=== PATIENT | male | born 1965 | race American Indian/Alaskan Native ===

== ENCOUNTER 2021-07-26 08:36 | Inpatient (IN) | payer SELFPAY ==
[2021-07-26] MEDS ORDERED: ALBUTEROL 2.5 MG/3 ML NEBU IH ONE (08:38)
[2021-07-26] MEDS ORDERED: IPRATROPIUM 0.02% NEBU 2.5 ML IH ONE (08:38)
[2021-07-26] MEDS ORDERED: ALBUTEROL 2.5 MG/3 ML NEBU IH SCH (09:00)
[2021-07-26] MEDS ORDERED: FUROSEMIDE 40 MG/4 ML INJ IV SCH (09:00)
[2021-07-26] MEDS ORDERED: IPRATROPIUM 0.02% NEBU 2.5 ML IH SCH (09:00)
[2021-07-26 09:12] LABS: Basophils # (Auto) 0.1 K/mm3 (0.0-0.1); Basophils % (Auto) 1.1 % (0.0-1.8); Eosinophils # (Auto) 0.4 K/mm3 (0.0-0.4); Eosinophils % (Auto) 5.5 % (0.0-4.3); Hematocrit 29.5 % (35.5-45.6); Hemoglobin 9.8 gm/dl (11.8-15.2); Lymphocytes # (Auto) 3.7 K/mm3 (1.2-5.4); Lymphocytes % (Auto) 48.9 % (13.4-35.0); Mean Corpuscular HGB Conc 33 % (32-34); Mean Corpuscular Volume 94 fl (84-94); Monocytes # (Auto) 0.5 K/mm3 (0.0-0.8); Platelet Count 285 K/mm3 (140-440); Red Blood Count 3.14 M/mm3 (3.65-5.03); Red Cell Distribution Width 14.7 % (13.2-15.2)
[2021-07-26 09:21] LABS: INR 1.23 (0.87-1.13)
[2021-07-26 09:29] LABS: ABG HCO3 23.7 mmol/L (20.0-26.0); ABG Methemoglobin 0.4 % (0.0-1.5); ABG Oxygen Saturation 94.5 % (95.0-99.0); ABG PCO2 61.3 mm Hg; ABG PH 7.205 pH Units (7.350-7.450); ABG PO2 83.5 mm Hg (80.0-90.0)
[2021-07-26 09:32] LABS: Creatine Kinase MB 5.7 ng/mL (0.0-4.0)
[2021-07-26 09:35] LABS: Alanine Aminotransferase 28 units/L (7-56); Albumin 2.7 g/dL (3.9-5); BUN/Creatinine Ratio 13; Blood Urea Nitrogen 10 mg/dL (9-20); Calcium 6.7 mg/dL (8.4-10.2); Hemolysis Index 128
[2021-07-26 10:12] LABS: Amphetamine Screen,Urine PRESUMPTIVE NEGATIVE; Benzodiazepines Screen,Urine PRESUMPTIVE NEGATIVE; Cannabinoid Screen,Urine PRESUMPTIVE POSITIVE; Cocaine Screen,Urine PRESUMPTIVE POSITIVE; Methadone Screen,Urine PRESUMPTIVE NEGATIVE; Opiate Screen,Urine PRESUMPTIVE NEGATIVE
[2021-07-26 10:23] LABS: Bilirubin,Urine NEG (Negative); Blood,Urine SM (Negative); Color,Urine Colorless (Yellow); Urobilinogen,Urine < 2.0 mg/dL (<2.0)
--- NOTE | 2021-07-26 10:41 | XRay Report ---
CHEST 1 VIEW INDICATION: Dyspnea. COMPARISON: None FINDINGS: SUPPORT DEVICES: None. HEART: Within normal limits. LUNGS/PLEURA: Moderate patchy multifocal airspace disease throughout the lungs with no pleural effusi on. ADDITIONAL FINDINGS: None. IMPRESSION: 1. Lung findings as above. Signer Name: Grant Norman MD Signed: 07/26/2021 10:36 AM Workstation Name: [id number]
[2021-07-26] MEDS ORDERED: cefTRIAXone/NS 1 GM/50 ML 1 GM/50 ML BAG IV ONE (11:45)
--- NOTE | 2021-07-26 11:50 | Emergency Department Report ---
ED Shortness of Breath HPI - General Chief Complaint: Dyspnea/Respdistress Stated Complaint: shortness of breath Time Seen by Provider: 07/26/21 08:37 Source: EMS Mode of arrival: Stretcher Limitations: No Limitations - History of Present Illness Initial Comments: Pt found on side of the road in severe respiratory distress. pt is 56 years old with no known medical problems , he was found by EMS at the side of road ion distress, admit to drug use, no fever, o2 sat is low MD Complaint: shortness of breath -: Gradual, days(s) Known History Of: other Associated Symptoms: chest pain, cough - Related Data Home Oxygen Therapy: No Home Medications Medication Instructions Recorded Confirmed Last Taken No Known Home Medications [No 07/26/21 07/26/21 Unknown Reported Home Medications] Allergies Allergy/AdvReac Type Severity Reaction Status Date / Time No Known Allergies Allergy Unverified 07/26/21 08:50 ED Review of Systems ROS: Stated complaint: shortness of breath Other details as noted in HPI Comment: Unobtainable due to pts medical conditions ED Past Medical Hx - Past Medical History Previous Medical History?: No Hx Hypertension: No - Medications Home Medications: Home Medications Medication Instructions Recorded Confirmed Last Taken Type No Known Home Medications [No 07/26/21 07/26/21 Unknown History Reported Home Medications] ED Physical Exam - General Limitations: No Limitations General appearance: alert, in distress - Head Head exam: Present: atraumatic, normocephalic - Eye Eye exam: Present: normal appearance - ENT ENT exam: Present: mucous membranes moist - Neck Neck exam: Present: normal inspection - Respiratory Respiratory exam: Present: wheezes, rales, decreased breath sounds. Absent: respiratory distress - Cardiovascular Cardiovascular Exam: Present: normal rhythm, tachycardia. Absent: systolic murmur, diastolic murmur, rubs, gallop - GI/Abdominal GI/Abdominal exam: Present: soft, normal bowel sounds - Rectal Rectal exam: Present: deferred - Extremities Exam Extremities exam: Present: normal inspection - Back Exam Back exam: Present: normal inspection - Neurological Exam Neurological exam: Present: alert, oriented X3 - Psychiatric Psychiatric exam: Present: normal affect, normal mood - Skin Skin exam: Present: warm, dry, intact, normal color. Absent: rash ED Course Vital Signs 04/05/22 04/05/22 04/05/22 08:32 08:35 08:40 Temperature 95.9 F L Pulse Rate 100 H 113 H 114 H Pulse Rate [ Bilateral Bases ] Respiratory 32 H 33 H 28 H Rate Respiratory Rate [Bilateral Bases] Blood Pressure 203/130 Blood Pressure 194/131 [Right] O2 Sat by Pulse 82 L 100 100 Oximetry 07/26/21 07/26/21 07/26/21 08:46 09:00 09:14 Temperature Pulse Rate 111 H 123 H Pulse Rate [ 108 H Bilateral Bases ] Respiratory 30 H 30 H Rate Respiratory 33 H Rate [Bilateral Bases] Blood Pressure 194/131 Blood Pressure [Right] O2 Sat by Pulse 100 100 Oximetry 07/26/21 07/26/21 07/26/21 09:16 09:30 09:46 Temperature Pulse Rate 108 H 104 H 98 H Pulse Rate [ Bilateral Bases ] Respiratory 33 H 27 H 23 Rate Respiratory Rate [Bilateral Bases] Blood Pressure 194/131 177/115 177/115 Blood Pressure [Right] O2 Sat by Pulse 100 100 100 Oximetry 07/26/21 07/26/21 07/26/21 10:00 10:16 10:30 Temperature Pulse Rate 95 H 91 H 92 H Pulse Rate [ Bilateral Bases ] Respiratory 21 17 21 Rate Respiratory Rate [Bilateral Bases] Blood Pressure 160/107 160/107 147/100 Blood Pressure [Right] O2 Sat by Pulse 100 100 100 Oximetry 07/26/21 07/26/21 07/26/21 10:40 10:46 11:00 Temperature 96.0 F L Pulse Rate 85 86 Pulse Rate [ Bilateral Bases ] Respiratory 19 21 Rate Respiratory Rate [Bilateral Bases] Blood Pressure 147/100 134/90 Blood Pressure [Right] O2 Sat by Pulse 100 100 Oximetry 07/26/21 07/26/21 11:16 11:30 Temperature Pulse Rate 81 85 Pulse Rate [ Bilateral Bases ] Respiratory 19 20 Rate Respiratory Rate [Bilateral Bases] Blood Pressure 134/90 129/85 Blood Pressure [Right] O2 Sat by Pulse 100 100 Oximetry ED Medical Decision Making - Lab Data Result diagrams: 07/26/21 08:45 07/26/21 08:45 - EKG Data -: EKG Interpreted by [facility] EKG shows normal: sinus rhythm Rate: tachycardia - EKG Data Interpretation: [facility] Critical care attestation.: If time is entered above; I have spent that time in minutes in the direct care of this critically ill patient, excluding procedure time. ED Disposition Clinical Impression: SOB (shortness of breath), CHF (congestive heart failure), Pneumonia, Respiratory failure, Substance abuse Disposition: 09 ADMITTED INPATIENT Is pt being admited?: Yes Does the pt Need Aspirin: No Condition: Fair Instructions: Bacterial Pneumonia (ED) Referrals: TARUN VALDEZ MD [Primary Care Provider] - 3-5 Days
[2021-07-26] MEDS ORDERED: oxyCODONE /ACETAMINOPHEN 5-325MG TAB PO PRN (13:24)
[2021-07-26] MEDS ORDERED: ONDANSETRON 4 MG/2 ML INJ IV PRN (13:24)
[2021-07-26] MEDS ORDERED: ACETAMINOPHEN 325 MG TAB PO PRN (13:24)
--- NOTE | 2021-07-26 13:24 | History and Physical Report ---
History of Present Illness Date of examination: 07/26/21 Date of admission: July 22, 2021 Chief complaint: Increasing shortness of breath and altered sensorium since morning History of present illness: Patient was found started on broad insulin with respiratory distress. Patient was found by EMS and was brought to the emergency room. Patient was hypoxic at the time of arrival in the emergency room. Patient had bilateral crackles on examination. Work-up in the emergency room revealed pulmonary vascular congestion because of which patient is being admitted. Also his blood pressure was high. No chest pain. Orthopnea present. Dyspnea on exertion present. Patient has class III to class IV NYHA symptoms. - Past Medical History -- No -past surgical history N/a -social history N/a -family history N/a - Medications Home Medications: Home Medications Medication Instructions Recorded Confirmed Last Taken Type No Known Home Medications [No 07/26/21 07/26/21 Unknown History Reported Home Medications] Review of Systems ROS: Stated complaint: shortness of breath Other details as noted in HPI Comment: Unobtainable due to pts medical conditions Medications and Allergies Allergies Allergy/AdvReac Type Severity Reaction Status Date / Time No Known Allergies Allergy Unverified 07/26/21 08:50 Home Medications Medication Instructions Recorded Confirmed Last Taken Type No Known Home Medications [No 07/26/21 07/26/21 Unknown History Reported Home Medications] Active Meds: Active Medications Albuterol (Albuterol 2.5 Mg/3 Ml Nebu) 2.5 mg IH ONCE@0900 [facility] Stop: 07/26/21 14:00 Last Admin: 07/26/21 11:37 Dose: Not Given Ipratropium [place] (Ipratropium 0.02% Nebu 2.5 Ml) 0.5 mg IH ONCE@0900 [facility] Stop: 07/26/21 14:00 Last Admin: 07/26/21 11:37 Dose: Not Given Exam - Constitutional Vitals: Temp Pulse Resp BP Pulse Ox 96.0 F L 84 18 128/94 100 07/26/21 10:40 07/26/21 13:00 07/26/21 13:00 07/26/21 13:00 07/26/21 13:00 General appearance: Present: no acute distress, well-nourished - EENT Eyes: Present: PERRL ENT: hearing intact, clear oral mucosa - Neck Neck: Present: supple, normal ROM - Respiratory Respiratory effort: normal Respiratory: bilateral: CTA, rales - Cardiovascular Heart rate: 78 Rhythm: regular Heart Sounds: Present: S1 & S2. Absent: rub, click - Extremities Extremities: pulses symmetrical, No edema Peripheral Pulses: within normal limits - Abdominal General gastrointestinal: Present: soft, non-tender, non-distended, normal bowel sounds Male genitourinary: Present: normal - Rectal Rectal Exam: deferred - Integumentary Integumentary: Present: clear, warm, dry - Musculoskeletal Musculoskeletal: gait normal, strength equal bilaterally - Psychiatric Psychiatric: appropriate mood/affect, intact judgment & insight - Neurologic Neurologic: CNII-XII intact, moves all extremities - Allied Health Allied health notes reviewed: nursing, case management HEART Score - HEART Score Troponin: Troponin T < 0.010 ng/mL (0.00-0.029) 07/26/21 08:45 Results - Labs CBC & Chem 7: 07/27/21 05:54 07/27/21 05:54 Labs: Laboratory Last Values WBC 7.5 K/mm3 (4.5-11.0) 07/26/21 08:45 RBC 3.14 M/mm3 (3.65-5.03) L 07/26/21 08:45 Hgb 9.8 gm/dl (11.8-15.2) L 07/26/21 08:45 Hct 29.5 % (35.5-45.6) L 07/26/21 08:45 MCV 94 fl (84-94) 07/26/21 08:45 MCH 31 pg (28-32) 07/26/21 08:45 MCHC 33 % (32-34) 07/26/21 08:45 RDW 14.7 % (13.2-15.2) 07/26/21 08:45 Plt Count 285 K/mm3 (140-440) 07/26/21 08:45 Lymph % (Auto) 48.9 % (13.4-35.0) H 07/26/21 08:45 [place] % (Auto) 6.0 % (0.0-7.3) 07/26/21 08:45 Eos % (Auto) 5.5 % (0.0-4.3) H 07/26/21 08:45 Baso % (Auto) 1.1 % (0.0-1.8) 07/26/21 08:45 Lymph # (Auto) 3.7 K/mm3 (1.2-5.4) 07/26/21 08:45 [place] # (Auto) 0.5 K/mm3 (0.0-0.8) 07/26/21 08:45 Eos # (Auto) 0.4 K/mm3 (0.0-0.4) 07/26/21 08:45 Baso # (Auto) 0.1 K/mm3 (0.0-0.1) 07/26/21 08:45 Seg Neutrophils % 38.5 % (40.0-70.0) L 07/26/21 08:45 Seg Neutrophils # 2.9 K/mm3 (1.8-7.7) 07/26/21 08:45 PT 16.9 Sec. (12.2-14.9) H 07/26/21 08:45 INR 1.23 (0.87-1.13) H 07/26/21 08:45 ABG pH 7.205 pH Units (7.350-7.450) L 07/26/21 09:10 ABG pCO2 61.3 mm Hg 07/26/21 09:10 ABG pO2 83.5 mm Hg (80.0-90.0) 07/26/21 09:10 ABG HCO3 23.7 mmol/L (20.0-26.0) 07/26/21 09:10 ABG O2 Saturation 94.5 % (95.0-99.0) L 07/26/21 09:10 ABG O2 Content 15.6 (0.0-44) 07/26/21 09:10 ABG Base Excess -5.0 mmol/L (-2.0-3.0) L 07/26/21 09:10 ABG Hemoglobin 12.3 gm/dl (14.0-18.0) L 07/26/21 09:10 ABG Carboxyhemoglobin 4.7 % (0.0-5.0) 07/26/21 09:10 ABG Methemoglobin 0.4 % (0.0-1.5) 07/26/21 09:10 Oxyhemoglobin 89.7 % (95.0-99.0) L 07/26/21 09:10 FiO2 60 % 07/26/21 09:10 Sodium 144 mmol/L (137-145) 07/26/21 08:45 Potassium 3.6 mmol/L (3.6-5.0) 07/26/21 08:45 Chloride 113.2 mmol/L (98-107) H 07/26/21 08:45 Carbon Dioxide 18 mmol/L (22-30) L 07/26/21 08:45 Anion Gap 16 mmol/L 07/26/21 08:45 BUN 10 mg/dL (9-20) 07/26/21 08:45 Creatinine 0.8 mg/dL (0.8-1.3) 07/26/21 08:45 Estimated GFR > 60 ml/min 07/26/21 08:45 BUN/Creatinine Ratio 13 % 07/26/21 08:45 Glucose 170 mg/dL (75-100) H 07/26/21 08:45 POC Glucose 161 mg/dL (70-105) H 07/26/21 09:04 Calcium 6.7 mg/dL (8.4-10.2) L 07/26/21 08:45 Magnesium 1.70 mg/dL (1.7-2.3) 07/26/21 08:45 Total Bilirubin 0.40 mg/dL (0.1-1.2) 07/26/21 08:45 AST 38 units/L (5-40) 07/26/21 08:45 ALT 28 units/L (7-56) 07/26/21 08:45 Alkaline Phosphatase 75 units/L (35-129) 07/26/21 08:45 Total Creatine Kinase 256 units/L (55-170) H 07/26/21 08:45 CK-MB (CK-2) 5.7 ng/mL (0.0-4.0) H 07/26/21 08:45 CK-MB (CK-2) Rel Index 2.2 (0-4) 07/26/21 08:45 Troponin T < 0.010 ng/mL (0.00-0.029) 07/26/21 08:45 NT-Pro-B Natriuret Pep 1129 pg/mL (0-900) H 07/26/21 08:45 Total Protein 5.7 g/dL (6.3-8.2) L 07/26/21 08:45 Albumin 2.7 g/dL (3.9-5) L 07/26/21 08:45 Albumin/Globulin Ratio 0.9 % 07/26/21 08:45 Lipase 22 units/L (13-60) 07/26/21 08:45 Urine Color Colorless (Yellow) 07/26/21 09:51 Urine Turbidity Clear (Clear) 07/26/21 09:51 Urine pH 7.0 (5.0-7.0) 07/26/21 09:51 Ur Specific [place] 1.006 (1.003-1.030) 07/26/21 09:51 Urine Protein 100 mg/dl mg/dL (Negative) 07/26/21 09:51 Urine Glucose (UA) 50 mg/dL (Negative) 07/26/21 09:51 Urine Ketones Neg mg/dL (Negative) 07/26/21 09:51 Urine Blood Sm (Negative) 07/26/21 09:51 Urine Nitrite Neg (Negative) 07/26/21 09:51 Urine Bilirubin Neg (Negative) 07/26/21 09:51 Urine Urobilinogen < 2.0 mg/dL (<2.0) 07/26/21 09:51 Ur Leukocyte Esterase Neg (Negative) 07/26/21 09:51 Urine WBC (Auto) 3.0 /HPF (0.0-6.0) 07/26/21 09:51 Urine RBC (Auto) 2.0 /HPF (0.0-6.0) 07/26/21 09:51 U Epithel Cells (Auto) < 1.0 /HPF (0-13.0) 07/26/21 09:51 Urine Opiates Screen Presumptive negative 07/26/21 09:51 Urine Methadone Screen Presumptive negative 07/26/21 09:51 Ur Barbiturates Screen Presumptive negative 07/26/21 09:51 Ur Phencyclidine Scrn Presumptive negative 07/26/21 09:51 Ur Amphetamines Screen Presumptive negative 07/26/21 09:51 U Benzodiazepines Scrn Presumptive negative 07/26/21 09:51 Urine Cocaine Screen Presumptive positive 07/26/21 09:51 U Marijuana (THC) Screen Presumptive positive 07/26/21 09:51 Drugs of Abuse Note Disclamer 07/26/21 09:51 - Imaging and Cardiology Imaging and Cardiology: Chest x-ray Moderate patchy multifocal airspace disease throughout the lungs with no pleural effusion Assessment and Plan Advance Directives: Yes - Patient Problems (1) Acute respiratory failure with hypoxia Current Visit: Yes Status: Acute Plan to address problem: Secondary to CHF and pulmonary edema (2) Acute exacerbation of CHF (congestive heart failure) Current Visit: Yes Status: Acute Qualifiers: Heart failure type: combined systolic and diastolic Qualified Code(s): I50.43 - 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 Plan to address problem: IV Lasix for now Aldactone added Echocardiogram for ejection fraction and valve function and wall abnormalities Cardiology consult requested (3) Hypertension Current Visit: Yes Status: Chronic Qualifiers: Hypertension type: primary hypertension Qualified Code(s): I10 - Essential (primary) hypertension Plan to address problem: Continue blood pressure medicines and adjust medications (4) DVT prophylaxis Current Visit: Yes Status: Acute Plan to address problem: On anticoagulation GI prophylaxis (5) Advance care planning Current Visit: Yes Status: Acute Plan to address problem: Disease education conducted care, care plan discussed, diagnosis discussed, prognosis discussed. Patient is full code. Patient acknowledges understanding and agreement with care plan. +30 minutes. (6) Person under investigation for COVID-19 Current Visit: Yes Status: Acute Plan to address problem: Coronavirus PCR test ordered for the morning
[2021-07-26] MEDS: POTASSIUM CHLORIDE ER 20 MEQ TAB PO SCH (14:11)
[2021-07-26] MEDS: FUROSEMIDE 40 MG/4 ML INJ IV SCH (17:47)
[2021-07-26] MEDS: FAMOTIDINE 20 MG TAB PO SCH (22:03)
[2021-07-27] MEDS: POTASSIUM CHLORIDE ER 20 MEQ TAB PO SCH (05:15)
[2021-07-27] MEDS: FUROSEMIDE 40 MG/4 ML INJ IV SCH (05:15)
[2021-07-27 06:21] LABS: Basophils % (Auto) 0.6 % (0.0-1.8); Eosinophils # (Auto) 0.2 K/mm3 (0.0-0.4); Eosinophils % (Auto) 2.5 % (0.0-4.3); Hematocrit 42.9 % (35.5-45.6); Hemoglobin 13.7 gm/dl (11.8-15.2); Lymphocytes # (Auto) 1.8 K/mm3 (1.2-5.4); Mean Corpuscular HGB Conc 32 % (32-34); Mean Corpuscular Volume 92 fl (84-94); Monocytes # (Auto) 0.5 K/mm3 (0.0-0.8); Monocytes % (Auto) 6.6 % (0.0-7.3); Platelet Count 335 K/mm3 (140-440); Red Blood Count 4.64 M/mm3 (3.65-5.03); Red Cell Distribution Width 14.6 % (13.2-15.2)
[2021-07-27 06:45] LABS: Alanine Aminotransferase 29 units/L (7-56); Albumin 3.7 g/dL (3.9-5); BUN/Creatinine Ratio 19; Blood Urea Nitrogen 21 mg/dL (9-20); Calcium 9.8 mg/dL (8.4-10.2); Hemolysis Index 10
--- NOTE | 2021-07-27 09:56 | Progress Note ---
Assessment and Plan Assessment and plan: #Acute respiratory failure with hypoxia -Hypoxic on admission, etiology suspect decompensation congestive heart failure ABG 7.2/61.3/83.5/23.7 on 60% FiO2 On BiPAP, will transition to nasal cannula #Acute exacerbation of congestive heart failure -Patient states that he had a recent admission at [place] for congestive heart failure, not currently on any medications -Troponin negative -BNP 1129 -Diuresis with Lasix 40 mg IV twice daily -Strict I/O. -Echo pending -Cardiology consulted on admission GDMT with lisinopril, Lasix. Will hold beta-jacob due to active cocaine abuse #Hypertensive urgency 194/131 Currently 130/82. Antihypertensive medications: Lisinopril, Lasix #Acute metabolic encephalopathy #Normocytic anemia #Active cocaine use -UDS positive + Behavioral health counseling administered educated patient on the harms of recreational drug abuse and the benefits of cessation. Community resources given for quitting. +15 minutes #Active THC use -UDS positive # Nicotine Abuse. - Cigarettes smoker - behavioral health counseling administered which included education on benefits of smoking cessation as well as options for quitting. +15 min. #Advance care planning Disease education conducted, care plan discussed, diagnoses discussed, prognosis discussed, patient is full code, patient acknowledges understanding and agree with care plan, +30 minutes. The high probability of a clinically significant, sudden or life threatening deterioration of the [multi] system(s) required my full and direct attention, intervention and personal management. The aggregate critical care time was [60] minutes. This time is in addition to time spent performing reported procedures but includes the following: [x] Data Review and interpretation [x] Patient assessment and monitoring of vital signs [x] Documentation [x] Medication orders and management Hospitalist Physical - Constitutional Vitals: Temp Pulse Resp BP Pulse Ox 98.0 F 81 18 130/82 100 07/27/21 04:08 07/27/21 04:44 07/27/21 04:08 07/27/21 04:08 07/27/21 04:08 General appearance: Present: no acute distress, well-nourished HEART Score - HEART Score Troponin: Troponin T < 0.010 ng/mL (0.00-0.029) 07/26/21 08:45 Results - Labs CBC & Chem 7: 07/27/21 05:54 07/27/21 05:54 Labs: Laboratory Last Values WBC 7.2 K/mm3 (4.5-11.0) 07/27/21 05:54 RBC 4.64 M/mm3 (3.65-5.03) 07/27/21 05:54 Hgb 13.7 gm/dl (11.8-15.2) D 07/27/21 05:54 Hct 42.9 % (35.5-45.6) D 07/27/21 05:54 MCV 92 fl (84-94) 07/27/21 05:54 MCH 29 pg (28-32) 07/27/21 05:54 MCHC 32 % (32-34) 07/27/21 05:54 RDW 14.6 % (13.2-15.2) 07/27/21 05:54 Plt Count 335 K/mm3 (140-440) 07/27/21 05:54 Lymph % (Auto) 25.0 % (13.4-35.0) 07/27/21 05:54 [place] % (Auto) 6.6 % (0.0-7.3) 07/27/21 05:54 Eos % (Auto) 2.5 % (0.0-4.3) 07/27/21 05:54 Baso % (Auto) 0.6 % (0.0-1.8) 07/27/21 05:54 Lymph # (Auto) 1.8 K/mm3 (1.2-5.4) 07/27/21 05:54 [place] # (Auto) 0.5 K/mm3 (0.0-0.8) 07/27/21 05:54 Eos # (Auto) 0.2 K/mm3 (0.0-0.4) 07/27/21 05:54 Baso # (Auto) 0.0 K/mm3 (0.0-0.1) 07/27/21 05:54 Seg Neutrophils % 65.3 % (40.0-70.0) 07/27/21 05:54 Seg Neutrophils # 4.7 K/mm3 (1.8-7.7) 07/27/21 05:54 PT 16.9 Sec. (12.2-14.9) H 07/26/21 08:45 INR 1.23 (0.87-1.13) H 07/26/21 08:45 ABG pH 7.205 pH Units (7.350-7.450) L 07/26/21 09:10 ABG pCO2 61.3 mm Hg 07/26/21 09:10 ABG pO2 83.5 mm Hg (80.0-90.0) 07/26/21 09:10 ABG HCO3 23.7 mmol/L (20.0-26.0) 07/26/21 09:10 ABG O2 Saturation 94.5 % (95.0-99.0) L 07/26/21 09:10 ABG O2 Content 15.6 (0.0-44) 07/26/21 09:10 ABG Base Excess -5.0 mmol/L (-2.0-3.0) L 07/26/21 09:10 ABG Hemoglobin 12.3 gm/dl (14.0-18.0) L 07/26/21 09:10 ABG Carboxyhemoglobin 4.7 % (0.0-5.0) 07/26/21 09:10 ABG Methemoglobin 0.4 % (0.0-1.5) 07/26/21 09:10 Oxyhemoglobin 89.7 % (95.0-99.0) L 07/26/21 09:10 FiO2 60 % 07/26/21 09:10 Sodium 140 mmol/L (137-145) 07/27/21 05:54 Potassium 4.1 mmol/L (3.6-5.0) 07/27/21 05:54 Chloride 102.1 mmol/L (98-107) 07/27/21 05:54 Carbon Dioxide 25 mmol/L (22-30) D 07/27/21 05:54 Anion Gap 17 mmol/L 07/27/21 05:54 BUN 21 mg/dL (9-20) H 07/27/21 05:54 Creatinine 1.1 mg/dL (0.8-1.3) 07/27/21 05:54 Estimated GFR > 60 ml/min 07/27/21 05:54 BUN/Creatinine Ratio 19 % 07/27/21 05:54 Glucose 94 mg/dL (75-100) 07/27/21 05:54 POC Glucose 161 mg/dL (70-105) H 07/26/21 09:04 Calcium 9.8 mg/dL (8.4-10.2) D 07/27/21 05:54 Magnesium 1.70 mg/dL (1.7-2.3) 07/26/21 08:45 Total Bilirubin 0.60 mg/dL (0.1-1.2) 07/27/21 05:54 AST 27 units/L (5-40) 07/27/21 05:54 ALT 29 units/L (7-56) 07/27/21 05:54 Alkaline Phosphatase 92 units/L (35-129) 07/27/21 05:54 Total Creatine Kinase 256 units/L (55-170) H 07/26/21 08:45 CK-MB (CK-2) 5.7 ng/mL (0.0-4.0) H 07/26/21 08:45 CK-MB (CK-2) Rel Index 2.2 (0-4) 07/26/21 08:45 Troponin T < 0.010 ng/mL (0.00-0.029) 07/26/21 08:45 NT-Pro-B Natriuret Pep 1129 pg/mL (0-900) H 07/26/21 08:45 Total Protein 7.3 g/dL (6.3-8.2) D 07/27/21 05:54 Albumin 3.7 g/dL (3.9-5) L 07/27/21 05:54 Albumin/Globulin Ratio 1.0 % 07/27/21 05:54 Lipase 22 units/L (13-60) 07/26/21 08:45 Urine Color Colorless (Yellow) 07/26/21 09:51 Urine Turbidity Clear (Clear) 07/26/21 09:51 Urine pH 7.0 (5.0-7.0) 07/26/21 09:51 Ur Specific [place] 1.006 (1.003-1.030) 07/26/21 09:51 Urine Protein 100 mg/dl mg/dL (Negative) 07/26/21 09:51 Urine Glucose (UA) 50 mg/dL (Negative) 07/26/21 09:51 Urine Ketones Neg mg/dL (Negative) 07/26/21 09:51 Urine Blood Sm (Negative) 07/26/21 09:51 Urine Nitrite Neg (Negative) 07/26/21 09:51 Urine Bilirubin Neg (Negative) 07/26/21 09:51 Urine Urobilinogen < 2.0 mg/dL (<2.0) 07/26/21 09:51 Ur Leukocyte Esterase Neg (Negative) 07/26/21 09:51 Urine WBC (Auto) 3.0 /HPF (0.0-6.0) 07/26/21 09:51 Urine RBC (Auto) 2.0 /HPF (0.0-6.0) 07/26/21 09:51 U Epithel Cells (Auto) < 1.0 /HPF (0-13.0) 07/26/21 09:51 Urine Opiates Screen Presumptive negative 07/26/21 09:51 Urine Methadone Screen Presumptive negative 07/26/21 09:51 Ur Barbiturates Screen Presumptive negative 07/26/21 09:51 Ur Phencyclidine Scrn Presumptive negative 07/26/21 09:51 Ur Amphetamines Screen Presumptive negative 07/26/21 09:51 U Benzodiazepines Scrn Presumptive negative 07/26/21 09:51 Urine Cocaine Screen Presumptive positive 07/26/21 09:51 U Marijuana (THC) Screen Presumptive positive 07/26/21 09:51 Drugs of Abuse Note Disclamer 07/26/21 09:51 [place]/IV: Voiding Method Urinal Active Medications - Current Medications Current Medications: Generic Name Dose Route Start Last Admin Trade Name Freq PRN Reason Stop Dose Admin Acetaminophen 650 mg 07/26/21 13:24 Acetaminophen 325 Mg Tab PO Q4H PRN Pain MILD(1-3)/Fever >100.5/COLLAZO Famotidine 20 mg 07/26/21 22:00 07/26/21 22:03 Famotidine 20 Mg Tab PO 20 mg BID DANETTE Administration Furosemide 40 mg 07/26/21 18:00 07/27/21 05:15 Furosemide 40 Mg/4 Ml Inj IV 40 mg 0600,1800 DANETTE Administration Nicotine 14 mg 07/27/21 23:21 Nicotine 14 Mg/24 Hr Patch TD QDAY DANETTE Ondansetron HCl 4 mg 07/26/21 13:24 Ondansetron 4 Mg/2 Ml Inj IV Q8H PRN Nausea And Vomiting Oxycodone/Acetaminophen 1 tab 07/26/21 13:24 Oxycodone /Acetaminophen 5-325mg Tab PO Q6H PRN Pain, Moderate (4-6) Potassium Chloride 20 meq 07/26/21 14:00 07/27/21 05:15 Potassium Chloride Er 20 Meq Tab PO 20 meq Q12H DANETTE Administration Sodium Chloride 10 ml 07/26/21 22:00 07/26/21 22:03 Sodium Chloride 0.9% 10 Ml Flush Syringe IV 10 ml BID DANETTE Administration Sodium Chloride 10 ml 07/26/21 13:24 Sodium Chloride 0.9% 10 Ml Flush Syringe IV PRN PRN LINE FLUSH
[2021-07-27] MEDS ORDERED: LISINOPRIL 20 MG TAB PO SCH (10:00)
[2021-07-27] MEDS: FAMOTIDINE 20 MG TAB PO SCH (10:44)
[2021-07-27 12:10] VITALS: BP 135/93
[2021-07-27 12:34] LABS: C-Reactive Protein 1.7 mg/dL (0.00-1.30)
--- NOTE | 2021-07-27 13:38 | Consultation ---
History of Present Illness Consult date: 07/27/21 Consult reason: congestive heart failure History of present illness: The patient is a 56-year-old man admitted to the hospital with shortness of breath and congestive heart failure. He was said to have been found on the side of the road in respiratory distress. On presentation to the emergency room, his systolic blood pressure was in the 200s. He has improved clinically with initial hospital therapy including diuretics. The patient had no chest pain, and denied lower extremity edema. He has a history of chronic severe hypertension, and has been diagnosed with systolic heart failure since 2019. He is noncompliant with medical therapy for his hypertension, and also did not follow-up with his service provider who he last saw him in March 2019. At the time of his initial evaluation, an echocardiogram reported an ejection fraction of 20 to 25%. On this presentation, ECG was sinus tachycardia 110, with left ventricular hypertrophy, no ST or T wave changes of ischemia. The troponin levels were normal. Chest x-ray revealed borderline cardiomegaly, but with moderate interstitial edema. Past History Past Medical History: heart failure, hypertension Medications and Allergies Allergies Allergy/AdvReac Type Severity Reaction Status Date / Time No Known Allergies Allergy Unverified 07/26/21 08:50 Home Medications Medication Instructions Recorded Confirmed Last Taken Type No Known Home Medications [No 07/26/21 07/26/21 Unknown History Reported Home Medications] Active Meds: Active Medications Acetaminophen (Acetaminophen 325 Mg Tab) 650 mg PO Q4H PRN PRN Reason: Pain MILD(1-3)/Fever >100.5/COLLAZO Famotidine (Famotidine 20 Mg Tab) 20 mg PO BID [facility] Last Admin: 07/26/21 22:03 Dose: 20 mg Furosemide (Furosemide 40 Mg/4 Ml Inj) 40 mg IV 0600,1800 [facility] Last Admin: 07/27/21 05:15 Dose: 40 mg Lisinopril (Lisinopril 20 Mg Tab) 20 mg PO QDAY [facility] Nicotine (Nicotine 14 Mg/24 Hr Patch) 14 mg TD QDAY [facility] Ondansetron HCl (Ondansetron 4 Mg/2 Ml Inj) 4 mg IV Q8H PRN PRN Reason: Nausea And Vomiting Oxycodone/Acetaminophen (Oxycodone /Acetaminophen 5-325mg Tab) 1 tab PO Q6H PRN PRN Reason: Pain, Moderate (4-6) Last Admin: 07/27/21 11:54 Dose: 1 tab Potassium Chloride (Potassium Chloride Er 20 Meq Tab) 20 meq PO Q12H [facility] Last Admin: 07/27/21 05:15 Dose: 20 meq Sodium Chloride (Sodium Chloride 0.9% 10 Ml Flush Syringe) 10 ml IV BID [facility] Last Admin: 07/26/21 22:03 Dose: 10 ml Sodium Chloride (Sodium Chloride 0.9% 10 Ml Flush Syringe) 10 ml IV PRN PRN PRN Reason: LINE FLUSH Review of Systems Cardiovascular: orthopnea, shortness of breath, no chest pain, no palpitations, no rapid/irregular heart beat, no edema, no syncope, no lightheadedness Physical Examination Vital Signs Pulse Resp Pulse Ox 100 H 32 H 82 L 07/26/21 08:32 07/26/21 08:32 07/26/21 08:32 General appearance: no acute distress HEENT: Positive: PERRL Neck: Positive: neck supple Cardiac: Positive: Reg Rate and Rhythm Lungs: Positive: Decreased Breath Sounds Neuro: Positive: Grossly Intact Abdomen: Positive: Soft Male genitourinary: Positive: deferred Skin: Positive: Clear Extremities: Absent: edema Results 07/27/21 05:54 07/27/21 05:54 Cardiac Enzymes 07/27/21 07/27/21 Range/Units 05:54 05:54 AST 27 (5-40) units/L Lactate Dehydrogenase 186 H (91-180) units/L CBC 07/27/21 Range/Units 05:54 WBC 7.2 (4.5-11.0) K/mm3 RBC 4.64 (3.65-5.03) M/mm3 Hgb 13.7 D (11.8-15.2) gm/dl Hct 42.9 D (35.5-45.6) % Plt Count 335 (140-440) K/mm3 Lymph # (Auto) 1.8 (1.2-5.4) K/mm3 [place] # (Auto) 0.5 (0.0-0.8) K/mm3 Eos # (Auto) 0.2 (0.0-0.4) K/mm3 Baso # (Auto) 0.0 (0.0-0.1) K/mm3 Comprehensive Metabolic Panel 07/27/21 Range/Units 05:54 Sodium 140 (137-145) mmol/L Potassium 4.1 (3.6-5.0) mmol/L Chloride 102.1 (98-107) mmol/L Carbon Dioxide 25 D (22-30) mmol/L BUN 21 H (9-20) mg/dL Creatinine 1.1 (0.8-1.3) mg/dL Glucose 94 (75-100) mg/dL Calcium 9.8 D (8.4-10.2) mg/dL AST 27 (5-40) units/L ALT 29 (7-56) units/L Alkaline Phosphatase 92 (35-129) units/L Total Protein 7.3 D (6.3-8.2) g/dL Albumin 3.7 L (3.9-5) g/dL EKG interpretations - Telemetry EKG Rhythm: Sinus Tachycardia Assessment and Plan - Patient Problems (1) Acute on chronic systolic heart failure Current Visit: Yes Status: Acute Plan to address problem: Patient with history of chronic hypertension and acute on chronic systolic heart failure diagnosed in 2019, noncompliant with medical therapy, presents with acute exacerbation of chronic systolic heart failure. We will treat with guideline directed medical therapy. An echocardiogram done on this presentation shows is persistent, severe cardiomyopathy, ejection fraction less than 15 to 20%, severe concentric left ventricle hypertrophy, mild to moderate aortic regurgitation and trace to mild mitral regurgitation. (2) Uncontrolled hypertension Current Visit: Yes Status: Acute Plan to address problem: Patient has chronic severe uncontrolled hypertension, noncompliant with medical therapy. We will optimize antihypertensive therapy, but recommend aids social worker intervention, to establish proper outpatient medical management and physician follow-up.
--- NOTE | 2021-07-27 15:01 | Discharge Summary ---
Providers - Providers Date of Admission: 07/26/21 13:24 Attending physician: CRISTINA MOJICA MD 07/27/21 07:35 Consult to Physician [CONS] Routine Comment: Consulting Provider: ZA HAMILTON Physician Instructions: Reason For Exam: chf Primary care physician: TARUN VALDEZ Hospitalization Reason for admission: shortness of breath Condition: Fair Hospital course: History of present illness: Patient was found started on broad insulin with respiratory distress. Patient was found by EMS and was brought to the emergency room. Patient was hypoxic at the time of arrival in the emergency room. Patient had bilateral crackles on examination. Work-up in the emergency room revealed pulmonary vascular congestion because of which patient is being admitted. Also his blood pressure was high. No chest pain. Orthopnea present. Dyspnea on exertion present. Patient has class III to class IV NYHA symptoms. Hospital course: patient transitioned to room air from nasal cannula. no longer in respiratory distress. His initial symptomology has resolved and patient is back to his baseline. Most of symptomology driven by chf and uncontrolled blood pressure. cardiology input noted, patient has a known cardiomyopathy and lacks sufficient OP followup for management of his chronic cardiac issues. We will discharge home with rx for aspirin, coreg, spironalactone, lasix, lisinopril. I've requested social worker aide to help with outpatient primary care set up and medication cost assistance if need be. Adon[place]arina was given recommendation for primary care doctor upon discharge and was asked to followup with cardiology as an outpatient as well. Assessment and Plan #Acute respiratory failure with hypoxia -Hypoxic on admission, etiology suspect decompensation congestive heart failure ABG 7.2/61.3/83.5/23.7 on 60% FiO2 On BiPAP, will transition to nasal cannula #Acute exacerbation of congestive heart failure -Patient states that he had a recent admission at [facility] for congestive heart failure, not currently on any medications -Troponin negative -BNP 1129 -Diuresis with Lasix 40 mg IV twice daily -Strict I/O. -Echo pending -Cardiology consulted on admission GDMT with lisinopril, Lasix. Will hold beta-jacob due to active cocaine abuse #Hypertensive urgency 194/131 Currently 130/82. Antihypertensive medications: Lisinopril, Lasix #Acute metabolic encephalopathy #Normocytic anemia #Active cocaine use -UDS positive + Behavioral health counseling administered educated patient on the harms of recreational drug abuse and the benefits of cessation. Community resources given for quitting. +15 minutes #Active THC use -UDS positive # Nicotine Abuse. - Cigarettes smoker - behavioral health counseling administered which included education on benefits of smoking cessation as well as options for quitting. +15 min. #Advance care planning Disease education conducted, care plan discussed, diagnoses discussed, prognosis discussed, patient is full code, patient acknowledges understanding and agree with care plan, +30 minutes. Disposition: 01 HOME / SELF CARE / HOMELESS Final Discharge Diagnosis (Prints w/discharge instructions): congestive heart failure exacerbation, hypertensive urgency Time spent for discharge: 35 Core Measure Documentation - Palliative Care Palliative Care/ Comfort Measures: Not Applicable - Core Measures Any of the following diagnoses?: heart failure - Heart Failure Discharge Requirements MONO/ARB for LVSD if EF <40%: Yes Beta jacob at discharge: Yes Exam - Physical Exam Narrative exam: Objective: Physical Exam: VITAL SIGNS: Reviewed. GENERAL: The patient appears normally developed, Vital signs as documented. Thin gentleman, appears older than reported age HEAD: No signs of head trauma. EYES: Pupils are equal. Extraocular motions intact. EARS: Hearing grossly intact. MOUTH: Oropharynx is normal. NECK: No adenopathy, no JVD. CHEST: Bibasilar rales improved CARDIAC: Regular rate and rhythm. S1 and S2, without murmurs, gallops, or rubs. VASCULAR: No Edema. Peripheral pulses normal and equal in all extremities. ABDOMEN: Soft, non tender and non distended. No rebound or guarding, and no masses palpated. Bowel Sounds normal. MUSCULOSKELETAL: Good range of motion of all major joints. Extremities without clubbing, cyanosis or edema. NEUROLOGIC EXAM: Alert and oriented x 4. no focal sensory or strength deficits. PSYCHIATRIC: Mood normal. SKIN: detail exam as documented in skin assessment - Constitutional Vitals: Temp Pulse Resp BP Pulse Ox 98.8 F 76 22 135/93 97 07/27/21 11:52 07/27/21 11:52 07/27/21 11:52 07/27/21 11:52 07/27/21 11:52 Plan Activity: no restrictions Weight Bearing Status: Weight Bear as Tolerated Diet: low salt Follow up with: ZA HAMILTON MD [Staff Physician] - 7 Days TARUN VALDEZ MD [Primary Care Provider] - 3-5 Days Prescriptions: Spironolactone [Aldactone] 25 mg PO QDAY 30 Days #30 tablet carvediloL [Coreg] 3.125 mg PO BID 30 Days #60 tablet Aspirin EC [Halfprin EC] 81 mg PO QDAY 30 Days #30 tablet Furosemide [Lasix] 40 mg PO DAILY 30 Days #30 tab lisinopriL [Zestril TAB] 20 mg PO QDAY 30 Days #30 tablet
[2021-07-27] MEDS ORDERED: carvediloL 3.125 MG TAB PO SCH (22:00)
[2021-07-27] MEDS ORDERED: NICOTINE 14 MG/24 HR PATCH TD SCH (23:21)
[2021-07-28] MEDS ORDERED: ASPIRIN EC 81 MG TAB PO SCH (10:00)
[2021-07-28] MEDS ORDERED: SPIRONOLACTONE 25 MG TAB PO SCH (10:00)
--- NOTE | 2021-07-28 10:14 | Electrocardiograph Report ---
[facility], [place] Test Date: 2021-07-26 Test Time: 08:41:46 Pat Name: CASSIE BARNES Department: Room: A351 1 Gender: M [employer]st: TRINA : 1965 Requested By: HENRI ARAGON Order Number: [id number] Reading MD: David Tolbert Measurements Intervals [place] Rate: 110 P: 81 VA: 149 QRS: 85 QRSD: 77 T: 91 QT: 380 QTc: 515 Interpretive Statements Sinus tachycardia Biatrial enlargement Probable left ventricular hypertrophy Nonspecific T abnormalities, lateral leads Prolonged QT interval No previous ECG available for comparison Electronically Signed On 07-28-2021 10:13:31 EDT by David Tolbert
== END 2021-07-27 16:32 | disposition home or self-care (01) | DRG 291 ==
LOC: ED 08:36 → 4A 13:24 → 3A 07-27 08:45
PROVIDERS: ADMIT Internal Medicine; ATTEND Internal Medicine
PROC: 5A09357 Assistance with Respiratory Ventilation, Less than 24 Consecutive Hours, Continuous Positive Airway Pressure (ICD-10-PCS; principal; 2021-07-26)
PROC: 4A033R1 Measurement of Arterial Saturation, Peripheral, Percutaneous Approach (ICD-10-PCS; 2021-07-26)
DX: I11.0 Hypertensive heart disease with heart failure (principal); I50.43 Acute on chronic combined systolic (congestive) and diastolic (congestive) heart failure; J96.01 Acute respiratory failure with hypoxia; J18.9 Pneumonia, unspecified organism; G93.41 Metabolic encephalopathy; Z20.822 Contact with and (suspected) exposure to COVID-19; I16.0 Hypertensive urgency; D64.9 Anemia, unspecified; F17.210 Nicotine dependence, cigarettes, uncomplicated
CPT/HCPCS: 36415; 36600; 71045; 80053; 80307; 81001; 82550; 82553; 82728; 82803; 82962; 83615; 83690; 83735; 83880; 84145; 84484; 85025; 85379; 85610; 86140; 93005; 93306; 94644; 94660; 94760; G0378; C8929; J0696; J1940; U0003